=== PATIENT | female | born 1970 | race Caucasian/White ===

== ENCOUNTER 2019-09-13 14:06 | Outpatient (CLI) | payer OTHER, SELFPAY ==
--- NOTE | ~2019-09-13 | MM_ITS ---
EXAMINATION: MM screening norberto BI w blanca HISTORY: Screening mammogram TECHNIQUE: Craniocaudal and mediolateral oblique 3-D tomosynthesis images were obtained and synthetic 2-D images were generated. CAD analysis was submitted and interpreted. COMPARISON: 09/09/2018, 09/06/2017 bilateral digital screening mammogram examinations BREAST PARENCHYMAL COMPOSITION: The breasts are almost entirely fatty. FINDINGS: There is no evidence of suspicious mass, calcification, or architectural distortion to sugg est malignancy in either breast. There has been no suspicious interval change. IMPRESSION: 1. No mammographic evidence of malignancy. 2. Recommend routine screening mammography in one year. BI-RADS Category 1: Negative Reviewed, dictated and finalized at location B. RITY COMPLIANCE ENGINEER
== END 2019-09-13 14:07 | disposition home or self-care (01) ==
LOC: ANHIMG 14:11
PROVIDERS: PCP Internal Medicine; Visit Provider Internal Medicine
DX: Z12.31 Encounter for screening mammogram for malignant neoplasm of breast (principal)
CPT/HCPCS: 77063; 77067

== ENCOUNTER 2020-09-19 12:55 | Outpatient (CLI) | payer OTHER, SELFPAY ==
--- NOTE | ~2020-09-19 | MM_ITS ---
EXAMINATION: MM screening norberto BI w blanca HISTORY: Screening mammogram TECHNIQUE: Craniocaudal and mediolateral oblique 3-D tomosynthesis images were obtained and synthetic 2-D images were generated. CAD analysis was submitted and interpreted. COMPARISON: 09/13/2019, , 09/06/2017 bilateral digital screening mammogram examinations BREAST PARENCHYMAL COMPOSITION: The breasts are almost entirely fatty. FINDINGS: There is no evidence of suspicious mass, calcification, or architectural distortion to sugg est malignancy in either breast. There has been no suspicious interval change. IMPRESSION: 1. No mammographic evidence of malignancy. 2. Recommend routine screening mammography in one year. BI-RADS Category 1: Negative Reviewed, dictated and finalized at location A. PROCESSING SCIENTIST
== END 2020-09-19 12:56 | disposition home or self-care (01) ==
LOC: ANHIMG 12:58
PROVIDERS: Family Provider Nurse Practitioner Family; PCP Internal Medicine; Visit Provider Internal Medicine
DX: Z12.31 Encounter for screening mammogram for malignant neoplasm of breast (principal)
CPT/HCPCS: 77063; 77067

== ENCOUNTER 2022-08-12 08:50 | Outpatient (CLI) | payer OTHER, SELFPAY ==
--- NOTE | 2022-08-12 11:00 | NEURO_ITS ---
Impression: # History of bilateral hand numbness. # Bilateral Carpal Tunnel Syndrome (left worse than right). # Needle/EMG exam not requested. # Clinical correlation recommended. Motor Nerve Conduction Upper Extremities Median Nerve Conduction Velocity (m/sec) Terminal Latency (msec) Response Voltage(mV) Elbow-Wrist Wrist Elbow Wrist Right 47 4.3 5 4 Left 51 6.0 5 6 Ulnar Nerve Conduction Velocity (m/sec) Terminal Latency (msec) Response Voltage(mV) Above Elbow Below Elbow Wrist Above Elbow Below Elbow Wrist Right 55 59 2.5 7 8 8 Left 55 57 2.5 9 9 10 F-Wave Latency Median (ms) Ulnar (ms) Right 26.2 27.6 Left 28.2 28.6 Sensory Nerve Conduction Upper Extremities Median Nerve Stimulation Terminal Latency (msec) Wrist/Digit Response Voltage (uV) Wrist Right 5.3/5.4 5/9 Left 5.9/6.1 19/9 Ulnar Nerve Stimulation Terminal Latency (msec) Wrist/Digit Response Voltage (uV) Wrist Right 2.8 46 Left 3.0 28 Radial Nerve Terminal Latency (msec) Response Voltage(mV) Right 2.0 9 Left 1.7 25 MTDD
== END 2022-08-12 08:51 | disposition home or self-care (01) ==
PROVIDERS: PCP Physician Assistant Medical; Visit Provider Plastic Surgery
DX: R53.1 Weakness (principal); G56.03 Carpal tunnel syndrome, bilateral upper limbs
CPT/HCPCS: 95911

== ENCOUNTER 2022-08-24 12:24 | Outpatient (CLI) | payer OTHER, SELFPAY ==
[2022-08-24 13:06] LABS: Anion Gap 7 mmol/L (8-16); Blood Urea Nitrogen 20 mg/dL (7-17); Calcium 8.8 mg/dL (8.4-10.2); Carbon Dioxide 32 mmol/L (22-30); Chloride 95 mmol/L (98-107); Estimated Glomerular Filt Rate > 60; Glucose 127 mg/dL (65-110); Sodium 134 mmol/L (137-145)
== END 2022-08-24 12:25 | disposition home or self-care (01) ==
PROVIDERS: Anesthesiology; PCP Physician Assistant Medical; Visit Provider Plastic Surgery
DX: Z51.81 Encounter for therapeutic drug level monitoring (principal); Z79.899 Other long term (current) drug therapy
CPT/HCPCS: 36415; 80048

== ENCOUNTER 2022-08-26 00:06 | Day surgery (SDC) | payer OTHER, SELFPAY ==
[2022-08-20 13:52] VITALS: BMI 42.9
--- NOTE | 2022-08-20 13:57 | PC.NURSE ---
Report to the Outpatient Waiting Room, entrance under the green pavilion located off [facility], at time 7:00 on date 08/26/22. Planned Procedure Time: 9:00. Time changes happen often and if your time is changed the preop area will call you the afternoon before. - You and your visitor will be asked to self-screen and do not enter if you have any COVID symptoms. - Only one visitor is requested with a max of two and NO children visitors are allowed at this time. - The patient visitor may be requested to leave or wait in car when not with patient due to distancing restrictions. - A mask is REQUIRED within the hospital. Patients may have clear liquids (water, carbonated beverages, clear teas, apple juice) until 3 hours prior to surgery (6:00) with a maximum of 20 ounces. - No food from midnight until time of surgery Take the following medications with a SIP of water the morning of surgery: PAROXETINE Medications to discontinue per physician: VITAMINS/SUPPLEMENTS Date to take last dose: 08/22/22 Please no make-up, nail danish, hairspray, perfume, deodorant, or body powder the day of surgery. No jewelry (including any body piercings) or valuables the day of surgery, leave them at home. Please take a shower or bath the night before, or the morning of, surgery with an antibacterial soap. Wear comfortable, loose fitting clothing. - Jewelry must be removed prior to entering the operating room. Rings and piercings that are not removed may be cut off. - The hospital will not accept responsibility for valuables. - Please leave all valuables, including medications, at home the day of surgery. If you are going home after surgery, a licensed milk truck driver must drive you home. - NO public transportation without another adult if you receive anesthesia. - We recommend that an adult stay with you for 24 hours following discharge. - We also recommend that you do not drive, make important decision, drink alcoholic beverages, or take any drugs that were not prescribed by your health care provider for at least 24 hours after your discharge time. Follow any additional instructions given to you from your surgeon. If you or anyone in your household have experienced Covid symptoms in the past week, please notify your surgeon or the nurse liaison at the phone number below for possible testing. Telephone instructions given to GERARD CONKLIN and asked if any additional questions and then verbalized understanding. Patient advised to call surgeon office or pre surgery nurse liaison [phone] if any additional questions.
[2022-08-26] VITALS (7 sets, daily range): BP systolic 121–139; BP diastolic 76–96; PULSE 87–105; RESP 16; TEMP 36.7–37.6; O2SAT 92–98
--- NOTE | 2022-08-26 07:16 | WPDHPUPDATE1 ---
History and Physical Update Update Date/Time: 08/26/22 07:16 History and Physical has been reviewed, including an updated exam of the patient. There are NO changes in the patient's condition. Risks, benefits, and alternatives have been discussed and questions answered. Patient agrees to proceed with procedure.
--- NOTE | 2022-08-26 08:52 | WPDANESEPPF ---
Anes - Initial Pre Proc Eval Procedure: Operation Date: 08/26/22 09:00 Proposed Procedures p Bilateral Open Carpal Tunnel Release - Anselmo Fitzgerald MD Date/Time: 08/26/22 08:52 Surgeon: Anselmo Fitzgerald MD Pre Op Diagnosis: Bilateral Carpal Tunnel Syndrome Patient Data Age: 51 Gender: F Height: 1.63 m Weight: 112.4 kg Last Vital Signs Temp 37.6 C 08/26/22 07:11 Pulse 100 08/26/22 07:11 Resp 16 08/26/22 07:11 BP 132/96 H 08/26/22 07:11 Pulse Ox 97 08/26/22 07:11 O2 Del Method Room Air 08/26/22 07:11 Allergies Allergy/AdvReac Type Severity Reaction Status Date / Time azithromycin Allergy Gastrointestinal Verified 08/26/22 07:04 Upset Penicillins Allergy Anaphylaxis Verified 08/26/22 07:04 Home Medications Medication Instructions Recorded Confirmed Type allopurinol 300 mg tablet 300 mg PO DAILY #90 tabs 08/12/22 08/26/22 Rx hydrochlorothiazide 25 mg tablet 25 mg PO DAILY #90 tabs 08/12/22 08/26/22 Rx paroxetine HCl 20 mg tablet 20 mg PO DAILY #90 tabs 08/12/22 08/26/22 Rx multivitamin 1 tablet PO DAILY 08/20/22 08/26/22 History Patient hx anesthesia problems: none Family hx anesthesia problems: none Results Review: All pre-operative results and documents have been reviewed as part of the pre-operative evaluation. [facility] Past Medical History Medical History Anxiety IBS (irritable bowel syndrome) Vitamin B12 deficiency Vitamin D deficiency Family History Family History Father COPD (chronic obstructive pulmonary disease) Diabetes mellitus Heart disease Hypertension Mother Cancer Heart disease Hypertension Sibling Kidney disease Social History Social History Smoking packs per day: 0.5 Smoking cigarettes per day: 10.0 Years smoked: 2 Smoking pack-years: 1.00 Smoking status: Former smoker Tobacco type: cigarettes Second hand tobacco smoke exposure: No Additional smoking assessment comments: A TEEN/EARLY 20'S Alcohol intake: current 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 Substance use: current Substance use type: marijuana Living arrangements: with family Gender identity (if verbalized by the patient): Female Sexual Orientation (if Verbalized by the Patient): Straight or Heterosexual Spiritual care concerns: No Anes - Eval Final PreProcedure Day of Procedure 08/26/22 08:52 Patient weight: morbidly obese Heart: regular rate and rhythm Lungs: decreased breath sounds Airway: Mallampati scale class II Neurological: alert and oriented Last oral intake: >/= 8 hours ASA classification: III Emergent: no Anesthetic plan: proceed Anesthesia type and monitoring: general GIVS and standard monitoring Results Review: All pre-operative results and documents have been reviewed as part of the pre-operative evaluation. Informed Consent: The patient's anesthetic plan and its attendant risks and benefits were discussed with the patient/family/POA. Questions were solicited and answers provided to the satisfaction of the patient/family/POA.
[2022-08-26] MEDS: LACTATED RINGERS 1,000 ML 30 ML IV CONT (09:51)
--- NOTE | 2022-08-26 10:27 | P.OP_ITS ---
Procedure Note - Detailed Date of Procedure 08/26/22 Pre-op Diagnosis Bilateral Carpal Tunnel Syndrome Post-op Diagnosis Same Procedure Performed Bilateral open carpal tunnel release Surgeon Anselmo Fitzgerald MD Anesthesia MAC Description of Procedure The patient confirmed both carpal tunnels were to be operated on and these were marked in the holding area. She was taken to the operating room where she was placed supine on the operating table. She was given IV sedation. A time-out was held and confirmed. She had an IV left upper extremity. Both sites were prepped and draped in usual fashion. The tourniquets were placed on the mid forearm. Both sites marked incision and locally infiltrated with 1% lidocaine with epinephrine. On the left the hand was exsanguinated the tourniquet inflated to 250 mmHg. The incision was made as marked and dissection was carried through the subcutaneous tissue to the palmar aponeurosis. This and carpal ligament were incised with a 15 blade. A complete release of the transverse retinaculum was done with a 15 blade under 3 point retraction. No unusual anatomy was noted. The skin was closed with interrupted 5 0 nylon tourniquet was released and the bandage applied. Attention was turned to the right hand, already anesthetized. The extremity was exsanguinated and the tourniquet was inflated to 250 mmHg. The the incision was made as marked and dissection was carried out through the subcutaneous tissue with blunt and sharp dissection. The palmar aponeurosis was divided flexor retinaculum was identified and also divided under 3 point retraction. No unusual anatomy was noted. The tourniquet was released and the wound closed with interrupted 5 0 nylon suture. and the usual was applied and the patient was transported to the area discharged from the operating room stable condition. She is being discharged home with a prescription for hydroc odone 5/325 7. Estimated Blood Loss 0 Drains No Packing No Pathology None sent Complications No immediate complications Condition Stable Disposition PACU
== END 2022-08-26 11:15 | disposition home or self-care (01) ==
PROVIDERS: PCP Physician Assistant Medical; Visit Provider Plastic Surgery
PROC: (CPT 64721; principal; 2022-08-26 09:00)
DX: G56.03 Carpal tunnel syndrome, bilateral upper limbs (principal); F41.9 Anxiety disorder, unspecified; K58.9 Irritable bowel syndrome, unspecified; E53.8 Deficiency of other specified B group vitamins; E55.9 Vitamin D deficiency, unspecified; F10.90 Alcohol use, unspecified, uncomplicated; F12.90 Cannabis use, unspecified, uncomplicated; Z87.891 Personal history of nicotine dependence; Z79.899 Other long term (current) drug therapy
CPT/HCPCS: 64721; A9270; J1100; J2250; J2405; J2704; J3010; J7120

== ENCOUNTER 2024-06-15 15:14 | Outpatient (CLI) | payer OTHER, SELFPAY ==
--- NOTE | ~2024-06-15 | MM_ITS ---
EXAMINATION: MM screening norberto BI w blanca HISTORY: Screening TECHNIQUE: Craniocaudal and mediolateral oblique 3-D tomosynthesis images were obtained and synthetic 2-D images were generated. CAD analysis was submitted and interpreted. COMPARISON: Comparison to multiple prior studies sequentially, with oldest reviewed study dated 09/06. BREAST PARENCHYMAL COMPOSITION: Not Dense: The breasts are almost entirely fatty. FINDINGS: There is no evidence of suspicious mass, calcification, or architectural distortion to sugg est malignancy in either breast. There has been no suspicious interval change. IMPRESSION: 1. No mammographic evidence of malignancy. 2. Recommend routine screening mammography in one year. BI-RADS Category 1: Negative Reviewed, dictated and finalized at location B. ONAL SALES CONSULTANT
== END 2024-06-15 15:15 | disposition home or self-care (01) ==
PROVIDERS: PCP Physician Assistant Medical; Visit Provider Physician Assistant Medical
DX: Z12.31 Encounter for screening mammogram for malignant neoplasm of breast (principal)
CPT/HCPCS: 77063; 77067

== ENCOUNTER 2025-07-19 13:02 | Outpatient (CLI) | payer OTHER, SELFPAY ==
--- NOTE | ~2025-07-19 | MM_ITS ---
EXAMINATION: MM screening norberto BI w blanca HISTORY: Screening. TECHNIQUE: Craniocaudal and mediolateral oblique 3-D tomosynthesis images were obtained and synthetic 2-D images were generated. CAD analysis was submitted and interpreted. COMPARISON: 2023, 2020, and 2019. BREAST PARENCHYMAL COMPOSITION: Not Dense: The breasts are almost entirely fatty FINDINGS: No suspicious masses are seen. There are no suspicious calcifications. No unexplained architectural distortion is seen. There are no skin or nipple abnormalities identified. There is no adenopathy seen on the images submitted. IMPRESSION: No mammographic evidence to suggest malignancy is seen. The patient may return to screening mammography as per ACR guidelines. BI-RADS 1 - Negative. Reviewed, dictated and finalized at location C. [employer]
== END 2025-07-19 13:03 | disposition home or self-care (01) ==
LOC: ANHFOHIMG 13:04
PROVIDERS: PCP Physician Assistant Medical; Visit Provider Physician Assistant Medical
DX: Z12.31 Encounter for screening mammogram for malignant neoplasm of breast (principal)
CPT/HCPCS: 77063; 77067